=== PATIENT | female | born 1975 | race Caucasian/White ===

== ENCOUNTER → 2022-04-27 | Outpatient (CLI) | payer OTHER | LOC: M CARPUL 08:29 | PROVIDERS: ATTEND Family Medicine | DX: R06.00 Dyspnea, unspecified (principal) ==

== ENCOUNTER → 2022-05-25 | Outpatient (CLI) | payer OTHER ==
[~2022-05-25] MED LIST: METHACHOLINE KIT (J7674) INH ONE
== END ==
LOC: M CARPUL 07:53
PROVIDERS: ATTEND Family Medicine
DX: R06.02 Shortness of breath (principal)

== ENCOUNTER 2024-02-26 01:57 | Emergency (ER) | payer OTHER ==
[~2024-02-26] VITALS: Ht 162.6 cm; Wt 49.9 kg
[2024-02-26 01:57] VITALS: BP 120/72; TEMP 97.5; O2SAT 98
== END 2024-02-26 02:31 | disposition left against medical advice (07) ==
LOC: M ED 01:57
DX: Z53.21 Procedure and treatment not carried out due to patient leaving prior to being seen by health care provider (principal)

== ENCOUNTER 2025-01-08 16:14 | Emergency (ER) | payer OTHER ==
[~2025-01-08] VITALS: Ht 160 cm; Wt 49.3 kg
[2025-01-08] MEDS ORDERED: D 50CAP2 (16:23)
[2025-01-08] MEDS ORDERED: TRAZ-252 (16:23)
[2025-01-08] MEDS ORDERED: FLUT1BLS (16:23)
[2025-01-08 17:04] LABS: BASO # 0.1 10^3/uL (0.0-0.2); BASO % 0.7 % (0.0-1.0); EOS # 0.2 10^3/uL (0.0-0.5); EOS % 1.8 % (0.0-3.0); HEMATOCRIT 42.2 % (36.0-47.0); HEMOGLOBIN 14.1 g/dl (12.0-15.5); LYMPH # 1.8 10^3/uL (1.5-5.0); LYMPH % 19.3 % (24.0-44.0); MEAN CORPUSCULAR HGB CONC 33.4 g/dl (32.0-36.5); MEAN CORPUSCULAR VOLUME 89.8 fl (80.0-96.0); MONO # 0.6 10^3/uL (0.0-0.8); MONO % 6.6 % (2.0-8.0); NEUTROPHILS # 6.7 10^3/uL (1.5-8.5); NEUTROPHILS % 71.2 % (36.0-66.0); PLATELET COUNT, AUTOMATED 372 10^3/uL (150-450); WHITE BLOOD COUNT 9.4 10^3/uL (4.0-10.0)
[2025-01-08 17:24] LABS: LIPASE 25 U/L (12-53)
[2025-01-08 17:27] LABS: ALBUMIN 4.1 G/DL (3.2-5.2); ALKALINE PHOSPHATASE 58 U/L (35-104); ALT/SGPT 15 U/L (7.0-40); AST/SGOT 14 U/L (<34); BILIRUBIN,DIRECT 0.1 MG/DL (<0.4); BILIRUBIN,TOTAL 0.5 MG/DL (0.3-1.2); BLOOD UREA NITROGEN 8 MG/DL (9-23); CALCIUM LEVEL 9.5 MG/DL (8.5-10.1); CARBON DIOXIDE LEVEL 25 MMOL/L (20-31); CHLORIDE LEVEL 107 MMOL/L (98-107); GLOMERULAR FILTRATION RATE > 90.0 (>58); GLUCOSE, FASTING 85 MG/DL (60-100); POTASSIUM SERUM 4.6 MMOL/L (3.5-5.1); SODIUM LEVEL 142 MMOL/L (136-145)
[2025-01-09] MEDS: ONDANSETRON 4MG 2ML VIAL IV ONE (00:30)
[2025-01-09] MEDS: KETOROLAC 30 MG/ML 1ML VIAL IV ONE (00:30)
[2025-01-09] MEDS ORDERED: ISOVUE-370 76% 100ML VIAL As Ordered ONE (00:36)
[2025-01-09] MEDS ORDERED: MIRA3350 PO (01:26)
[2025-01-09] MEDS ORDERED: COLA100C5 PO (01:26)
[2025-01-09] MEDS ORDERED: DULC5TAB PO (01:40)
[2025-01-09] MEDS: MAGNESIUM CITRATE 300ML BTL PO ONE (01:50)
[2025-01-09 01:51] VITALS: BP 141/68; TEMP 98; O2SAT 99
== END 2025-01-09 01:52 | disposition home or self-care (01) ==
LOC: M ED 16:14
DX: K59.00 Constipation, unspecified (principal); F12.10 Cannabis abuse, uncomplicated; F10.10 Alcohol abuse, uncomplicated; Z88.6 Allergy status to analgesic agent; Z79.899 Other long term (current) drug therapy
CPT/HCPCS: 36415; 74177; 80048; 80076; 83690; 84702; 85025; 99284; Q9967